=== PATIENT | male | born 1985 | race Hispanic/Latino ===

== ENCOUNTER 2018-07-15 23:42 | Emergency (ER) | payer SELFPAY ==
[~2018-07-15] VITALS: Ht 160 cm; Wt 61.4 kg
[2018-07-16 00:17] LABS: HEMOGLOBIN 13.8 g/dl (14.0-18.0); IMMATURE GRANULOCYTES 0.3 % (0.0-5.0); MEAN CELL VOLUME 83.2 fL CALC (80.0-100.0); MEAN CORPUSCULAR HGB 29.4 pG CALC (26.0-32.0); MEAN CORPUSCULAR HGB CONC 35.4 g/L CALC (32.0-36.0); NEUT# 6.29 thou/uL (1.82-7.42); RED BLOOD COUNT 4.69 mill/uL (4.70-6.10); RED CELL DISTRI WIDTH 12.5 % (11.5-15.5)
[2018-07-16 00:18] LABS: URINE BILIRUBIN - DIPSTICK NEGATIVE (NEGATIVE); URINE BLOOD DIPSTICK NEGATIVE (NEGATIVE); URINE COLOR YELLOW; URINE GLUCOSE - DIPSTICK NEGATIVE (NEGATIVE); URINE KETONE NEGATIVE (NEGATIVE); URINE LEUK ESTERASE NEGATIVE (NEGATIVE); URINE NITRITE - DIPSTICK NEGATIVE (Negative); URINE PROTEIN - DIPSTICK NEGATIVE (NEG-TRACE); URINE SPECIFIC GRAVITY <=1.005; URINE UROBILINOGEN - DIPSTICK 0.2 E.U./dL (0.2)
[2018-07-16 00:23] LABS: BARBITURATES NEGATIVE (NEGATIVE); COCAINE NEGATIVE (NEGATIVE); METHADONE NEGATIVE (NEGATIVE); OXCYCODONE NEGATIVE (NEGATIVE); TETRAHYDROCANNABIONOL NEGATIVE (NEGATIVE); TRICYLIC ANTIDEPRESSANTS NEGATIVE (NEGATIVE)
[2018-07-16 00:41] LABS: ALBUMIN 4.2 g/dL (3.2-5.0); ALKALINE PHOSPHATASE 87 u/l (38-126); ANION GAP 13 (6-22 (CALC)); BILIRUBIN, TOTAL 0.3 mg/dL (0.0-1.4); BUN 9 mg/dL (9-20); BUN/CREATININE RATIO 12 (12-20 (CALC)); CARBON DIOXIDE 25 mmol/l (22-30); CHLORIDE 106 mmol/l (95-108); CREATININE 0.8 mg/dL (0.7-1.3); GFR > 60 ML/MIN (>=60 (CALC)); GFR FOR AFR.AMER. > 60 ML/MIN (>=60 (CALC)); POTASSIUM 3.2 mmol/l (3.5-5.1); SGOT/AST 20 u/l (17-59); SODIUM 140 mmol/l (137-146); TOTAL PROTEIN 6.9 g/dL (6.3-8.2)
[2018-07-16 00:53] LABS: MYOGLOBIN 30 ng/mL (0 - 121)
[2018-07-16 00:54] LABS: AMYLASE 86 u/l (30-110); LIPASE 47 u/l (23-300)
[2018-07-16] MEDS ORDERED: NAPROSYN500 MG PO (01:16)
[2018-07-16 01:30] VITALS: BP 125/68
== END 2018-07-16 01:52 | disposition home or self-care (01) | DRG 313 ==
LOC: ED 23:42
PROVIDERS: Emergency Medicine
DX: R07.89 Other chest pain (principal)